=== PATIENT | female | born 1960 | race Caucasian/White ===

== ENCOUNTER 2019-04-24 10:25 | Emergency (ER) | payer SELFPAY ==
[~2019-04-24] VITALS: Ht 167.6 cm; Wt 90.9 kg
[2019-04-24] MEDS ORDERED: ACETAMINOPHEN 325 MG TABLET PO ONE (14:15)
[2019-04-24 14:30] VITALS: BP 185/80
== END 2019-04-24 14:59 | disposition home or self-care (01) ==
LOC: EMS 10:28
DX: R13.10 Dysphagia, unspecified (principal)
CPT/HCPCS: 70490